=== PATIENT | male | born 1985 | race Caucasian/White ===

== ENCOUNTER 2019-11-11 08:17 | Emergency (ER) | payer SELFPAY ==
[~2019-11-11] VITALS: Ht 193 cm; Wt 99.8 kg
[2019-11-11 08:24] VITALS: BP 119/81
== END 2019-11-11 08:45 | disposition left against medical advice (07) ==
LOC: MED 08:17
DX: R41.82 Altered mental status, unspecified (principal); Z53.21 Procedure and treatment not carried out due to patient leaving prior to being seen by health care provider
CPT/HCPCS: 99283

== ENCOUNTER 2019-11-25 22:13 | Inpatient (IN) | payer SELFPAY ==
[~2019-11-25] VITALS: Ht 188 cm; Wt 90.7 kg
[2019-11-25 22:15] VITALS: BP 94/36
--- NOTE | 2019-11-25 22:16 | NUR ---
PT CALVIN ALS. TAKEN TO BED 10
--- NOTE | 2019-11-25 22:20 | NUR ---
ASSESSMENT PERFORMED AT 2220. 34 YEAR OLD MALE BIBA FOR ALTERED LOC. PER AMBULANCE PT WAS FOUND ON TOP OF ROOF IN [place] BROTHERS. PT ARRIVES TO ER WITH MD AND 3 RNS AT BEDSIDE. PT PLACED ON MONITOR. PT WITH PUPPILS 2MM PINPOINT EYES, AOX1 TO NAME, GCS 12 ([id number]). PT RR 8, BREATHING SLOW AND SHALLOW, SKIN WARM AND DRY. BED IN LOWEST POSITION, LOCKED, BED RAIL UPX1. PMH - UNKNOWN ALLERGIES - UNKNOWN
--- NOTE | 2019-11-25 22:21 | NUR ---
Dr. Murillo examining patient.
[2019-11-25] MEDS ORDERED: NALOXONE PFS 2 MG/2 ML SYR IVP ONE (22:25)
--- NOTE | 2019-11-25 22:38 | NUR ---
PT VOMITTING, ERMD MADE AWARE
[2019-11-25] MEDS ORDERED: ONDANSETRON 4 MG/2 ML VIAL ONE (22:42)
[2019-11-25] MEDS ORDERED: ONDANSETRON 4 MG/2 ML VIAL IVP ONE (22:45)
[2019-11-25 22:50] LABS: APPEARANCE,URINE HAZY (CLEAR); BILIRUBIN,URINE NEGATIVE (NEGATIVE); BLOOD, URINE NEGATIVE (NEGATIVE); COLOR,URINE YELLOW (YELLOW); LEUKOCYTE ESTERASE ,URINE NEGATIVE (NEGATIVE); NITRITE, URINE NEGATIVE (NEGATIVE); UGLUCOSE NEGATIVE (NEGATIVE)
[2019-11-25 22:54] LABS: BASOPHILS % (AUTO) 0.5 % (0.0-2.0); EOSINOPHILS # (AUTO) 0.1 K/uL (0-0.4); EOSINOPHILS % (AUTO) 1.2 % (0.0-4.0); HEMATOCRIT 39.1 % (36-52); HEMOGLOBIN 13.1 g/dL (12.0-18.0); LYMPHOCYTES % (AUTO) 27.9 % (20.5-51.1); MEAN CORPUSCULAR HEMOGLOBIN 31 pg (27-31); MEAN CORPUSCULAR HGB CONC 34 g/dL (33-37); MEAN CORPUSCULAR VOLUME 91.4 fL (80-94); MONOCYTES # (AUTO) 0.6 K/uL (0.8-1.0); MONOCYTES % (AUTO) 8.4 % (1.7-9.3); NEUTROPHILS # (AUTO) 4.4 K/uL (1.8-7.7); PLATELET COUNT (AUTO) 203 K/uL (140-450); RED BLOOD CELL COUNT(AUTO) 4.28 MIL/uL (4.20-6.10); RED CELL DISTRIBUTION WIDTH 15.3 % (11.6-13.7); WHITE BLOOD COUNT (AUTO) 7.1 K/uL (4.8-10.8)
[2019-11-25 23:01] LABS: BARBITURATE, URINE NEGATIVE ng/ml (NEG <=200); BENZODIAZEPINE, URINE NEGATIVE ng/mL (NEG <=200); CANNABINOID, URINE POSITIVE ng/mL (NEG <=50); COCAINE, URINE POSITIVE ng/mL (NEG <=300); OPIATE, URINE NEGATIVE ng/mL (NEG <=2000); PHENCYCLIDINE SCREEN,URINE POSITIVE ng/mL (NEG <=25)
--- NOTE | 2019-11-25 23:08 | NUR ---
EKG PERFORMED AT BEDSIDE. PT DID NOT COOPERATE WITH TEST
[2019-11-25 23:09] LABS: ALBUMIN 3.5 g/dL (3.4-5.0); ANION GAP 11.6 (8-16); ASPARTATE AMINOTRANSFERASE 16 U/L (15-37); CARBON DIOXIDE 30.1 mmol/L (21-32); CHLORIDE 107 mmol/L (98-107); CREATININE 1.1 mg/dL (0.6-1.3); GFR ARICAN-AMERICAN 98 mL/min (>90); GLUCOSE 117 mg/dL (74-106); POTASSIUM 3.7 mmol/L (3.5-5.1); SODIUM SERUM 145 mmol/L (136-145); TOTAL BILIRUBIN 0.3 mg/dL (0.0-1.0); UREA NITROGEN, BLOOD 16 mg/dL (7-18)
--- NOTE | 2019-11-25 23:09 | NUR ---
PATIENT AOX1, BREATHING EVEN AND UNLABORED. ERMD MADE AWARE
[2019-11-25 23:11] LABS: SALICYLATE < 2.8 mg/dL (2.8-20.0)
[2019-11-25 23:12] LABS: ACETAMINOPHEN < 0.5 ug/ml (10-30)
--- NOTE | 2019-11-25 23:29 | NUR ---
PT TAKEN TO RAD
--- NOTE | 2019-11-25 23:49 | NUR ---
RETURN FROM CT.
--- NOTE | 2019-11-25 23:52 | NUR ---
GAG REFLEX PRESENT. ALERT TO ONLY NAME. REMAINS ON CONTINOUS CARDIAC MONITORING. VSS.
--- NOTE | 2019-11-26 00:05 | NUR ---
PATIENT RESTING WITH EYES CLOSED, BREATHING EVEN AND UNLABORED
--- NOTE | 2019-11-26 00:12 | NUR ---
ERMD AT BEDSIDE OF PT
--- NOTE | 2019-11-26 01:25 | NUR ---
PATIENT RESTING WITH EYES CLOSED, BREATHING EVEN AND UNLABORED
[2019-11-26] MEDS ORDERED: NACL 0.9% 1,000 ML IV SCH (01:37)
[2019-11-26] MEDS ORDERED: ACETAMINOPHEN 325 MG TAB PO PRN (01:40)
[2019-11-26] MEDS ORDERED: ONDANSETRON 4 MG/2 ML VIAL IVP PRN (01:40)
[2019-11-26] MEDS ORDERED: HYDROcodone/APAP 7.5/325 MG 1 TAB PO PRN (01:40)
--- NOTE | 2019-11-26 01:55 | NUR ---
PATIENT AOX1, BREATHING EVEN AND UNLABORED. PT ATTEMPTING TO ANSWER QUESTIONS NOW BUT IS SLUGGISH AND DIFFICULT TO UNDERSTAND. ERMD MADE AWARE
[2019-11-26 02:11] LABS: MAGNESIUM 2.3 mg/dL (1.8-2.4); PHOSPHORUS 2.9 mg/dL (2.5-4.9); THYROID STIMULATING HORMONE 1.06 uIU/mL (0.34-3.74)
[2019-11-26 02:12] LABS: PROTHROMBIN TIME 9.9 secs (10.8-13.4)
[2019-11-26 02:30] VITALS: BP 95/65
--- NOTE | 2019-11-26 02:30 | NUR ---
Patient will be admitted to care of DR JARAMILLO. Admited to TELE. Will go to room 122B. Belongings list completed. Report to ALFONSO WIGGINS.
--- NOTE | 2019-11-26 02:30 | NUR ---
PT ARRIVED FROM ED VIA [facility]. RECEIVED REPORT FROM ER NURSE. PT IS DROWSY BUT ABLE TO TRANSFER FROM [facility] TO BED BY HIMSELF SAFELY. PT IS ORIENTED TO SELF AND PLACE. DENIES ANY PAIN OR DISCOMFORT. CALM AND COOPERATIVE TO CARE. PT WAS ABLE TO ANSWER SOME FEW QUESTIONS BUT IS CONSTANTLY FALLING ASLEEP. RESPIRATIONS EVEN AND UNLABORED. SKIN IS IS DRY AND INTACT. ABDOMEN IS SOFT AND NON TENDER. IV ACCESS ON R ARM PATENT AND INTACT. PT WAS ORIENTED TO ROOM AND POLICIES. MRSA SWAB DONE. WATER PROVIDED ASKED BY PT. PT DRANK WATER. NO EPISODE OF ASPIRATION NOTED. FALL RISK PRECAUTIONS OBSERVED. YELLOW GOWN ON, NON-SKID SOCKS APPLIED. SIDE RAILS RAISED. BED IN LOW POSITION. CALL LIGHT WITHIN REACH. WILL CONTINUE TO MONITOR.
[2019-11-26 04:00] VITALS: BP 97/70
--- NOTE | 2019-11-26 04:00 | NUR ---
VITAL SIGNS WITHIN NORMAL LIMITS. PT SLEEPING BUT AROUSABLE TO VOICE AND TOUCH. DENIES ANY PAIN OR DISCOMFORT AT THIS TIME. SAFETY MEASURES IN PLACE. CALL LIGHT WITHIN REACH. WILL CONTINUE TO MONITOR.
--- NOTE | 2019-11-26 06:05 | NUR ---
PT ASLEEP. RESPIRATIONS EVEN AND UNLABORED. NO S/SX OF DISTRESS. SAFETY MEASURES IN PLACE. WILL CONTINUE TO MONITOR.
[2019-11-26 06:15] LABS: ALBUMIN 3.1 g/dL (3.4-5.0); ANION GAP 8.7 (8-16); CARBON DIOXIDE 30.3 mmol/L (21-32); CREATININE 0.8 mg/dL (0.6-1.3); TOTAL BILIRUBIN 0.3 mg/dL (0.0-1.0)
[2019-11-26 06:19] LABS: CHOL/HDL RATIO 3.1 (1-4.5)
[2019-11-26 06:24] LABS: BASOPHILS # (AUTO) 0.1 K/uL (0.00-0.22); BASOPHILS % (AUTO) 0.8 % (0.0-2.0); EOSINOPHILS % (AUTO) 0.6 % (0.0-4.0); HEMATOCRIT 36.8 % (36-52); HEMOGLOBIN 12.1 g/dL (12.0-18.0); LYMPHOCYTES # (AUTO) 1.7 K/uL (2.0-11.5); LYMPHOCYTES % (AUTO) 24.5 % (20.5-51.1); MEAN CORPUSCULAR HEMOGLOBIN 30 pg (27-31); MEAN CORPUSCULAR HGB CONC 33 g/dL (33-37); MEAN CORPUSCULAR VOLUME 90.9 fL (80-94); MONOCYTES # (AUTO) 0.8 K/uL (0.8-1.0); MONOCYTES % (AUTO) 11.4 % (1.7-9.3); NEUTROPHILS # (AUTO) 4.3 K/uL (1.8-7.7); NEUTROPHILS % (AUTO) 62.7 % (42.2-75.2); PLATELET COUNT (AUTO) 192 K/uL (140-450); RED BLOOD CELL COUNT(AUTO) 4.05 MIL/uL (4.20-6.10); RED CELL DISTRIBUTION WIDTH 15.5 % (11.6-13.7); WHITE BLOOD COUNT (AUTO) 6.8 K/uL (4.8-10.8)
--- NOTE | 2019-11-26 07:04 | NUR ---
ENDORSED TO DAY SHIFT NURSE FOR CONTINUITY OF CARE. PT IN STABLE CONDITION.
--- NOTE | 2019-11-26 07:10 | NUR ---
RECEIVED BEDSIDE REPORT FROM NIGHTSHIFT NURSE. PT RESTING IN BED. ABLE TO MAKE NEEDS KNOWN. RESPIRATIONS EVEN AND UNLABORED WITH NO SOB OR RESPIRATORY DISTRESS. SKIN WARM AND DRY TO TOUCH. IV SITE IN RFA 20G IS CLEAN, DRY, AND INTACT. SAFETY MEASURES IN PLACE. WILL CONTINUE TO MONITOR
--- NOTE | 2019-11-26 07:50 | NUR ---
PT GOT UP FROM BED AND WALKED OUT THE DOOR. DOOR ALARM WENT OFF. SECURITY PAGED. ASKED PT WHERE HE WAS GOING AND PT SAID, "I AM NOT STAYING HERE. GET THE FUCK AWAY FROM ME. I TOOK OUT MY IV SO I AM LEAVING AMA. GO AWAY!" PT WAS VERY ANGRY AND UNCOOPERATIVE. HEEL SPRAYER FIRST OUTSIDE MONITORING PT. TELE BOX RETURNED TO [employer] [employer]ING COORDINATOR.
--- NOTE | 2019-11-26 08:59 | NUR ---
PATIENT HAS BEEN SCREENED AND CATEGORIZED LOW NUTRITION RISK. PATIENT WILL BE SEEN WITHIN 7 DAYS OF ADMISSION. 12/02/[address]
[2019-11-26] MEDS ORDERED: FAMOTIDINE 20 MG TAB PO SCH (09:00)
[2019-11-26] MEDS ORDERED: DOCUSATE SODIUM 100 MG GELCAP PO SCH (09:00)
--- NOTE | 2019-11-26 10:36 | NUR ---
CHUCK BONER NOTE: PATIENT ELOPED. SW WAS UNABLE TO COMPLETE SCREENING.
== END 2019-11-26 07:50 | disposition left against medical advice (07) | DRG 93 ==
LOC: MED 22:13 → MTU 11-26 01:41
PROVIDERS: ADMIT General Practice; ATTEND General Practice
DX: G92 Toxic encephalopathy (principal); F19.10 Other psychoactive substance abuse, uncomplicated; F15.90 Other stimulant use, unspecified, uncomplicated; F14.90 Cocaine use, unspecified, uncomplicated; F12.90 Cannabis use, unspecified, uncomplicated
CPT/HCPCS: 36415; 70450; 71045; 80053; 80305; 81003; 82140; 82550; 83036; 83690; 83735; 83880; 84100; 84443; 84484; 85025; 85610; 85730; 87081; 93005; 96374; 96375; 99291; G0480; G0482; J2310; J2405; J7030; Q0092